=== PATIENT | male | born 1970 | race Two or more races ===

== ENCOUNTER 2017-02-22 15:46 | Emergency (ER) | payer SELFPAY ==
[2017-02-22 17:08] VITALS: BMI 26.6
[2017-02-22] MEDS ORDERED: SODIUM CHLORIDE 1,000 ML IV STA (18:59)
[2017-02-22] MEDS ORDERED: ONDANSETRON 4 MG/2 ML VIAL IVPUSH PRN (18:59)
[2017-02-22] MEDS ORDERED: PANTOPRAZOLE SODIUM 40 MG VIAL IVPUSH ONE (19:00)
[2017-02-22] MEDS ORDERED: MAGNESIUM SULF 50% (8.12 MEQ/2 ML-1 GM VIAL) IVPB ONE (19:01)
[2017-02-22] MEDS ORDERED: MAGNESIUM SULF 50% (8.12 MEQ/2 ML-1 GM VIAL) ONE (19:12)
[2017-02-22] MEDS ORDERED: PANTOPRAZOLE SODIUM 100 ML IVPB ONE (19:12)
[2017-02-22] MEDS ORDERED: ONDANSETRON 4 MG/2 ML VIAL ONE (19:31)
[2017-02-22 19:36] LABS: MCH 32.5 pg (25.7-33.7); MEAN PLT VOLUME 8.6 fl (7.5-11.1); PLATELET COUNT 209 K/MM3 (134-434); RDW 12.9 % (11.9-15.9); WHITE BLOOD COUNT 10.5 K/mm3 (4.0-10.0)
--- NOTE | 2017-02-22 19:43 | PDOC ---
History of Present Illness - General Chief Complaint: Nausea/Vomiting Stated Complaint: NAUSEA/VOMITING Time Seen by Provider: 02/22/17 18:58 - History of Present Illness Initial Comments: 02/22/17 19:36 Patient is a 46 yo M drinker with no significant past medical history, presented today with constant, burning, radiating to chest, 10/10 diffuse abdominal pain that started yesterday. He said he has been on a drinking binge for the past 2 weeks. His last drink was this morning. He has nausea with continuous non-bilious vomiting and non-bloody diarrhea. He also has hand tremors. He said he had similar symptoms last year and was admitted for pancreatitis. Timing/Duration: reports: constant Quality: reports: severe, burning Past History - Past Medical History Allergies/Adverse Reactions: Allergies Allergy/AdvReac Type Severity Reaction Status Date / Time No Known Allergies Allergy Verified 02/22/17 17:01 - Suicide/Smoking/Psychosocial Hx Smoking History: Never smoked Have you smoked in the past 12 months: No Information on smoking cessation initiated: No Hx Alcohol Use: No Drug/Substance Use Hx: No Substance Use Type: Alcohol Abd/GI Specific PMHX - Complaint Specific PMHX Other History: History of Pancreatitis Review of Systems - Review of Systems Able to Perform ROS?: Yes Constitutional: Yes: Chills, Diaphoresis, Fever Respiratory: No: Cough, Shortness of Breath, Wheezing ABD/GI: Yes: Diarrhea, Nausea, Vomiting : No: Burning, Dysuria, Frequency Neurological: Yes: Headache, Tremors. No: Numbness, Paresthesia, Tingling *Physical Exam - Vital Signs Last Vital Signs Temp Pulse Resp BP Pulse Ox 98.2 F 120 H 20 133/90 100 02/22/17 17:01 02/22/17 17:01 02/22/17 17:01 02/22/17 17:01 02/22/17 17:01 - Physical Exam Comments: 02/22/17 19:56 In severe distress, A/O x 3 Eyes: Injected Heart: Tachy, No murmurs, rubs or gallops Lungs: CTA b/l, no rales rhonchi or wheezing Abdomen: diffuse tenderness to palpation, +BS, soft, guarding ED Treatment Course - LABORATORY CBC & Chemistry Diagram: 02/22/17 19:30 02/22/17 19:30 - Medications Given in the ED: ED Medications Discontinued Medications Generic Name Dose Route Start Last Admin Trade Name Rufino PRN Reason Stop Dose Admin Magnesium Sulfate 2 gm 02/22/17 19:01 02/22/17 19:29 Magnesium Sulfate IVPB 02/22/17 19:02 2 gm ONCE ONE Administration Pantoprazole Sodium 40 mg 02/22/17 19:00 02/22/17 19:29 Protonix Iv IVPUSH 02/22/17 19:01 40 mg ONCE ONE Administration Medical Decision Making - Medical Decision Making 02/22/17 20:18 #Abdominal Pain -2 week alcohol binge w/ history of pancreatitis -CBC, CMP wnl -Lipase wnl -IV Fluids -Zofran -IV protonix -Magnesium -Banana bag -NPO -Librium 25mg 02/22/17 21:58 Patient says symptoms improved but is still feeling abdominal pain. Still nauseated, especially when standing. 02/22/17 23:22 ED OBS. will monitor *DC/Admit/Observation/Transfer Diagnosis at time of Disposition: Abdominal pain Qualifiers: Abdominal location: unspecified location Qualified Code(s): R10.9 - Unspecified abdominal pain; R10.9 - Unspecified abdominal pain
[2017-02-22 20:18] LABS: ALBUMIN 4.3 g/dl (3.4-5.0); ANION GAP 14 (8-16); CALCIUM 8.7 mg/dL (8.5-10.1); CO2 24 mmol/L (21-32); CREATININE 0.9 mg/dL (0.7-1.3); GLUCOSE,RANDOM 125 mg/dL (74-106); SGOT/AST 27 U/L (15-37); SGPT/ALT 30 U/L (12-78)
[2017-02-22 20:19] LABS: ALK PHOS 82 U/L (45-117); TOT PROT 8.5 g/dl (6.4-8.2)
[2017-02-22] MEDS ORDERED: FOLIC ACID INJECTION - 1 MG, THIAMINE HCL 100 MG, MULTIVIT INJECTION ADULT 10 ML in SOD... IVPB ONE (20:20)
[2017-02-22] MEDS ORDERED: chlordiazePOXIDE HCL 25 MG CAPSULE PO ONE (20:28)
[2017-02-22] MEDS ORDERED: chlordiazePOXIDE HCL 25 MG CAPSULE ONE (21:13)
--- NOTE | 2017-02-22 23:18 | PDOC ---
Attending Attestation - Resident Resident Name: Iwona Lr - ED Attending Attestation I have performed the following: I have examined & evaluated the patient, The case was reviewed & discussed with the resident, I agree w/resident's findings & plan, Exceptions are as noted - HPI HPI: 02/22/17 23:14 46 yo male with h/o alcoholism has been binger drinking for 2 weeks and presents with nausea and vomiting - Physicial Exam PE: 02/22/17 23:18 WNWD 46 yo male presents tremulous and vomiting HEENT normocephalic ,atraumatic neck supple lungs cta b/l cvs tachycardia abd no rebound,mild diffuse tenderness with no guarding, + epigastric tenderness ext no deformity skin warm and dry,no rashes - Medical Decision Making 02/23/17 00:04 labs reviewed and LFTs amd lipase are normal. vomiting stopped after zofran pt had c/o dizziness ekg NSR with no evidence of ischemia labs unremarkable 02/23/17 03:00 02/23/17 03:39 IMP alcoholic gastritis
[2017-02-23 01:51] VITALS: BP 135/69; PULSE 89; TEMP 98.3
[2017-02-23] MEDS ORDERED: ONDANSETRON 4 MG/2 ML VIAL IVPUSH ONE (02:15)
[2017-02-23] MEDS ORDERED: ONDANSETRON 4 MG/2 ML VIAL ONE (02:46)
--- NOTE | 2017-02-23 03:09 | PDOC ---
*Physical Exam - Vital Signs Last Vital Signs Temp Pulse Resp BP Pulse Ox 98.3 F 89 18 135/69 96 02/23/17 01:45 02/23/17 01:45 02/23/17 01:45 02/23/17 01:45 02/23/17 01:45 ED Treatment Course - LABORATORY CBC & Chemistry Diagram: 02/22/17 19:30 02/22/17 19:30 - ADDITIONAL ORDERS Additional order review: Laboratory Results 02/22/17 19:30 Sodium 137 Potassium 3.6 Chloride 99 Carbon Dioxide 24 Anion Gap 14 BUN 7 Creatinine 0.9 Creat Clearance w eGFR > 60 Random Glucose 125 H Calcium 8.7 Phosphorus 3.0 Magnesium 2.0 Total Bilirubin 1.0 AST 27 ALT 30 Alkaline Phosphatase 82 Total Protein 8.5 H Albumin 4.3 Lipase 99 02/22/17 19:30 RBC 4.75 MCV 93.0 MCHC 35.0 RDW 12.9 MPV 8.6 - Medications Given in the ED: ED Medications Discontinued Medications Generic Name Dose Route Start Last Admin Trade Name Freq PRN Reason Stop Dose Admin Chlordiazepoxide HCl 25 mg 02/22/17 20:28 02/22/17 20:30 Librium - PO 02/22/17 20:29 25 mg ONCE ONE Administration Sodium Chloride 1,000 mls @ 1,000 mls/hr 02/22/17 18:59 02/22/17 19:29 Normal Saline - IV 02/22/17 19:58 1,000 mls/hr ASDIR STA Administration Magnesium Sulfate 2 gm 02/22/17 19:01 02/22/17 19:29 Magnesium Sulfate IVPB 02/22/17 19:02 2 gm ONCE ONE Administration Ondansetron HCl 4 mg 02/23/17 02:15 02/23/17 02:51 Zofran Injection IVPUSH 02/23/17 02:16 4 mg ONCE ONE Administration Pantoprazole Sodium 40 mg 02/22/17 19:00 02/22/17 19:29 Protonix Iv IVPUSH 02/22/17 19:01 40 mg ONCE ONE Administration *DC/Admit/Observation/Transfer Diagnosis at time of Disposition: Abdominal pain Qualifiers: Abdominal location: epigastric Qualified Code(s): R10.13 - Epigastric pain Alcoholic gastritis Qualifiers: Chronicity: acute Gastritis bleeding: without bleeding Qualified Code(s): K29.20 - Alcoholic gastritis without bleeding - Discharge Dispostion Disposition: HOME Condition at time of disposition: Stable - Prescriptions Prescriptions: Ondansetron [Zofran Odt -] 4 mg SL TID PRN #21 od.tablet PRN Reason: Nausea And/Or Vomiting - Patient Instructions Printed Discharge Instructions: DI for Alcoholic Gastritis Additional Instructions: please steel pickler your medication at [address] please try to reduce your alcohol intake return for any worsening symptoms Print Language: ALGERIAN
--- NOTE | 2017-02-23 03:17 | PDOC ---
*Physical Exam - Vital Signs Last Vital Signs Temp Pulse Resp BP Pulse Ox 98.3 F 89 18 135/69 96 02/23/17 01:45 02/23/17 01:45 02/23/17 01:45 02/23/17 01:45 02/23/17 01:45 ED Treatment Course - LABORATORY CBC & Chemistry Diagram: 02/22/17 19:30 02/22/17 19:30 - ADDITIONAL ORDERS Additional order review: Laboratory Results 02/22/17 19:30 Sodium 137 Potassium 3.6 Chloride 99 Carbon Dioxide 24 Anion Gap 14 BUN 7 Creatinine 0.9 Creat Clearance w eGFR > 60 Random Glucose 125 H Calcium 8.7 Phosphorus 3.0 Magnesium 2.0 Total Bilirubin 1.0 AST 27 ALT 30 Alkaline Phosphatase 82 Total Protein 8.5 H Albumin 4.3 Lipase 99 02/22/17 19:30 RBC 4.75 MCV 93.0 MCHC 35.0 RDW 12.9 MPV 8.6 - Medications Given in the ED: ED Medications Discontinued Medications Generic Name Dose Route Start Last Admin Trade Name Freq PRN Reason Stop Dose Admin Chlordiazepoxide HCl 25 mg 02/22/17 20:28 02/22/17 20:30 Librium - PO 02/22/17 20:29 25 mg ONCE ONE Administration Sodium Chloride 1,000 mls @ 1,000 mls/hr 02/22/17 18:59 02/22/17 19:29 Normal Saline - IV 02/22/17 19:58 1,000 mls/hr ASDIR STA Administration Magnesium Sulfate 2 gm 02/22/17 19:01 02/22/17 19:29 Magnesium Sulfate IVPB 02/22/17 19:02 2 gm ONCE ONE Administration Ondansetron HCl 4 mg 02/23/17 02:15 02/23/17 02:51 Zofran Injection IVPUSH 02/23/17 02:16 4 mg ONCE ONE Administration Pantoprazole Sodium 40 mg 02/22/17 19:00 02/22/17 19:29 Protonix Iv IVPUSH 02/22/17 19:01 40 mg ONCE ONE Administration Medical Decision Making - Medical Decision Making 02/23/17 03:12 Received sign out from Dr. Lr on this patient Patient is a 46 yo M w/ PMH ETOH abuse presented to ED c/o 02/03 abdominal pain which is burning in quality, constant and radiates up to the chest for the past 1 day. His last drink was this morning. He has nausea with continuous non- bilious vomiting and non-bloody diarrhea. He also has hand tremors. Patient admitted to ED Obs. *DC/Admit/Observation/Transfer Diagnosis at time of Disposition: Abdominal pain Qualifiers: Abdominal location: epigastric Qualified Code(s): R10.13 - Epigastric pain Alcoholic gastritis Qualifiers: Chronicity: acute Gastritis bleeding: without bleeding Qualified Code(s): K29.20 - Alcoholic gastritis without bleeding - Discharge Dispostion Disposition: HOME Condition at time of disposition: Stable - Prescriptions Prescriptions: Ondansetron [Zofran Odt -] 4 mg SL TID PRN #21 od.tablet PRN Reason: Nausea And/Or Vomiting - Referrals - Patient Instructions Printed Discharge Instructions: DI for Alcoholic Gastritis Additional Instructions: please orange picker your medication at [address] please try to reduce your alcohol intake return for any worsening symptoms Print Language: TRISTANIAN - Post Discharge Activity
--- NOTE | 2017-02-23 14:43 | EKG ---
Test Reason : Blood Pressure : / mmHG Vent. Rate : 083 BPM Atrial Rate : 083 BPM P-R Int : 196 ms QRS Dur : 094 ms QT Int : 378 ms P-R-T Axes : 035 047 032 degrees QTc Int : 444 ms NORMAL SINUS RHYTHM NORMAL ECG NO PREVIOUS ECGS AVAILABLE Confirmed by CODI NETTLES MD ([id number]) on 02/23/2017 2:43:17 PM Referred By: Confirmed By:CODI NETTLES MD
== END 2017-02-23 03:15 | disposition home or self-care (01) ==
LOC: JER 15:46
PROC: 3E033GC Introduction of Other Therapeutic Substance into Peripheral Vein, Percutaneous Approach (ICD-10-PCS; principal; 2017-02-22)
PROC: 3E033GC Introduction of Other Therapeutic Substance into Peripheral Vein, Percutaneous Approach (ICD-10-PCS; 2017-02-22)
PROC: 3E033GC Introduction of Other Therapeutic Substance into Peripheral Vein, Percutaneous Approach (ICD-10-PCS; 2017-02-22)
DX: K29.20 Alcoholic gastritis without bleeding (principal)
CPT/HCPCS: 36415; 80053; 83690; 83735; 84100; 85027; 93005; 93010; 99282-25